=== PATIENT | female | born 1975 | race Two or more races ===

== ENCOUNTER 2019-05-22 09:25 | Outpatient (CLI) | payer OTHER | END 2019-05-22 09:43 | disposition home or self-care (01) | LOC: SONOGRAMA 09:25 → MAMO-SONO 13:45 | DX: M19.91 Primary osteoarthritis, unspecified site (principal) ==

== ENCOUNTER 2019-06-12 09:36 | Outpatient (CLI) | payer OTHER | END 2019-06-12 09:41 | disposition home or self-care (01) | LOC: RAD 09:36 → MAMO-SONO 09:36 | DX: N60.22 Fibroadenosis of left breast (principal); N60.21 Fibroadenosis of right breast ==

== ENCOUNTER 2019-06-18 08:46 | Outpatient (CLI) | payer OTHER | END 2019-06-18 09:11 | disposition home or self-care (01) | LOC: NUCLEAR 08:46 | DX: M05.79 Rheumatoid arthritis with rheumatoid factor of multiple sites without organ or systems involvement (principal) | CPT/HCPCS: 78315; A9503 ==

== ENCOUNTER 2019-07-10 03:57 | Inpatient (IN) | payer OTHER ==
[~2019-07-10] VITALS: Ht 165.1 cm; Wt 71.7 kg
--- NOTE | 2019-07-10 08:27 | NUR ---
TRIAGE REALIZADO A PAPEL.
== END 2019-07-22 14:51 | disposition home or self-care (01) | DRG 208 ==
LOC: ER 03:57 → SURH 08:45 → ICU 07-13 18:06 → SURH 07-20 11:24
PROVIDERS: ADMIT Internal Medicine Cardiovascular Disease
PROC: 8E0ZXY6 Isolation (ICD-10-PCS; 2019-07-10)
PROC: 3E0F7GC Introduction of Other Therapeutic Substance into Respiratory Tract, Via Natural or Artificial Opening (ICD-10-PCS; 2019-07-10)
PROC: BB24ZZZ Computerized Tomography (CT Scan) of Bilateral Lungs (ICD-10-PCS; 2019-07-11)
PROC: B246ZZZ Ultrasonography of Right and Left Heart (ICD-10-PCS; 2019-07-12)
PROC: 4A033R1 Measurement of Arterial Saturation, Peripheral, Percutaneous Approach (ICD-10-PCS; 2019-07-12)
PROC: 4A12X4Z Monitoring of Cardiac Electrical Activity, External Approach (ICD-10-PCS; 2019-07-13)
PROC: 5A1945Z Respiratory Ventilation, 24-96 Consecutive Hours (ICD-10-PCS; principal; 2019-07-14)
PROC: 0BH17EZ Insertion of Endotracheal Airway into Trachea, Via Natural or Artificial Opening (ICD-10-PCS; 2019-07-14)
PROC: 02HV33Z Insertion of Infusion Device into Superior Vena Cava, Percutaneous Approach (ICD-10-PCS; 2019-07-14)
DX: J13 Pneumonia due to Streptococcus pneumoniae (principal); J96.01 Acute respiratory failure with hypoxia; J91.8 Pleural effusion in other conditions classified elsewhere; I47.1 Supraventricular tachycardia; E27.49 Other adrenocortical insufficiency; F33.1 Major depressive disorder, recurrent, moderate; F43.29 Adjustment disorder with other symptoms; D64.89 Other specified anemias
CPT/HCPCS: 240

== ENCOUNTER 2019-12-25 10:21 | Outpatient (CLI) | payer OTHER | END 2019-12-25 10:28 | disposition home or self-care (01) | LOC: SONOGRAMA 10:21 | DX: J44.9 Chronic obstructive pulmonary disease, unspecified (principal); N63.20 Unspecified lump in the left breast, unspecified quadrant ==

== ENCOUNTER 2020-01-10 10:31 | Outpatient (CLI) | payer OTHER | END 2020-01-10 12:12 | disposition home or self-care (01) | LOC: SONOGRAMA 10:31 | DX: N63.13 Unspecified lump in the right breast, lower outer quadrant (principal); N60.11 Diffuse cystic mastopathy of right breast; N60.12 Diffuse cystic mastopathy of left breast ==

== ENCOUNTER 2020-03-06 15:20 | Emergency (ER) | payer OTHER ==
[~2020-03-06] VITALS: Ht 165.1 cm; Wt 72.6 kg
[2020-03-06] MEDS ORDERED: CLONAZEPAM2 M1 PO (15:49)
[2020-03-06] MEDS ORDERED: CYMBALTA60 MG (15:49)
== END 2020-03-06 17:18 | disposition home or self-care (01) ==
LOC: ER 15:20
DX: M54.5 Low back pain (principal)

== ENCOUNTER 2020-03-30 13:57 | Outpatient (CLI) | payer OTHER ==
[~2020-03-30 13:57] MED LIST: CLONAZEPAM2 M1 PO; CYMBALTA60 MG
== END 2020-03-30 14:08 | disposition home or self-care (01) ==
LOC: RAD 13:57
PROVIDERS: ATTEND Orthopaedic Surgery
DX: R07.89 Other chest pain (principal)

== ENCOUNTER 2020-03-30 14:53 | Outpatient (CLI) | payer OTHER | END 2020-03-30 15:00 | disposition home or self-care (01) | LOC: EKG 14:53 | PROVIDERS: ATTEND Orthopaedic Surgery | DX: I10 Essential (primary) hypertension (principal) ==

== ENCOUNTER 2020-07-23 10:46 | Outpatient (CLI) | payer OTHER | END 2020-07-23 10:58 | disposition home or self-care (01) | LOC: SONOGRAMA 10:46 | PROVIDERS: ATTEND Surgery | DX: N60.11 Diffuse cystic mastopathy of right breast (principal); N60.12 Diffuse cystic mastopathy of left breast; N64.59 Other signs and symptoms in breast ==

== ENCOUNTER 2020-10-18 13:52 | Emergency (ER) | payer OTHER ==
[~2020-10-18] VITALS: Ht 165.1 cm; Wt 72.6 kg
== END 2020-10-18 21:57 | disposition home or self-care (01) ==
LOC: ER 13:52
DX: S80.02XA Contusion of left knee, initial encounter (principal); S80.01XA Contusion of right knee, initial encounter; S30.0XXA Contusion of lower back and pelvis, initial encounter; S00.83XA Contusion of other part of head, initial encounter; W17.89XA Other fall from one level to another, initial encounter; Y93.89 Activity, other specified; Y92.098 Other place in other non-institutional residence as the place of occurrence of the external cause; Y99.8 Other external cause status

== ENCOUNTER 2020-12-01 07:22 | Outpatient (CLI) | payer OTHER | END 2020-12-01 07:34 | disposition home or self-care (01) | LOC: MRI 07:22 | PROVIDERS: ATTEND Orthopaedic Surgery | DX: M25.512 Pain in left shoulder (principal) | CPT/HCPCS: 73222 ==

== ENCOUNTER → 2021-03-23 | Emergency (ER) | payer OTHER ==
[~2021-03-23] VITALS: Ht 165.1 cm; Wt 68.0 kg
[~2021-03-23] MED LIST changes: +BUSPIRONE HCL7.5 MG PO; +LEVSIN0.125 MG PO; +PEPCID AC20 MG PO
== END | disposition home or self-care (01) ==
LOC: ER 11:33
DX: K25.9 Gastric ulcer, unspecified as acute or chronic, without hemorrhage or perforation (principal)

== ENCOUNTER 2021-12-14 21:28 | Emergency (ER) | payer OTHER ==
[~2021-12-14] VITALS: Ht 165.1 cm; Wt 75.7 kg
[2021-12-14] MEDS ORDERED: AMITRIPTYLINE150 MG (21:37)
[2021-12-14] MEDS ORDERED: ARIPIPRAZOLE5 MG (21:37)
[2021-12-14] MEDS ORDERED: LIPITOR20 MG PO (21:37)
[2021-12-14] MEDS ORDERED: MELOXICAM15 MG (21:38)
== END 2021-12-15 | disposition home or self-care (01) ==
LOC: ER 21:28
DX: S93.401A Sprain of unspecified ligament of right ankle, initial encounter (principal); W22.8XXA Striking against or struck by other objects, initial encounter; Y93.9 Activity, unspecified; Y92.009 Unspecified place in unspecified non-institutional (private) residence as the place of occurrence of the external cause

== ENCOUNTER 2022-04-11 09:29 | Outpatient (CLI) | payer OTHER ==
[~2022-04-11 09:29] MED LIST changes: +AMITRIPTYLINE150 MG; +ARIPIPRAZOLE5 MG; +LIPITOR20 MG PO; +MELOXICAM15 MG
== END 2022-04-11 09:30 | disposition home or self-care (01) ==
LOC: TOM 09:29
PROVIDERS: ATTEND Internal Medicine Gastroenterology
DX: R10.9 Unspecified abdominal pain (principal); M06.9 Rheumatoid arthritis, unspecified